=== PATIENT | female | born 1940 | race Caucasian/White ===

== ENCOUNTER → 2024-10-25 | Outpatient (CLI) | payer SELFPAY ==
[2024-10-25 15:24] LABS: Absolute Lymphocyte Count 1.83 X10^3/uL (0.83-4.51); Absolute Neutrophil Count 3.1 X10^3/uL (2.0-7.7); Basophil# 0.06 X10^3/uL; Eosinophil# 0.22 X10^3/uL; Eosinophils% 3.8 % (0-5); Hematocrit 42.2 % (37-47); Hemoglobin 12.8 g/dL (12.0-15.0); Lymphocyte # 1.83 X10^3/ul (0.83-4.51); Lymphocyte % 31.9 % (19-41); Mean Corp Hgb Conc 30.3 g/dL (32-36); Mean Corpuscular Hgb 24.7 pg (27.0-32.0); Mean Corpuscular Volume 81.5 fL (81-99); Mean Platelet Vol. 10.9 fl (6.2-12.0); Monocyte# 0.53 X10^3/uL; Monocyte% 9.2 % (0-10); NRBC Flagged by Analyzer 0 % (0-5); Neutrophil # 3.08 X10^3/uL (2.7-7.7); Neutrophil % 53.9 % (47-70); Platelet Count 263 K/mm3 (150-450); RBC Distribution Width CV 13.5 % (11.6-14.6); RBC Distribution Width SD 39.8 fl (35.1-43.9); Red Blood Count 5.18 M/mm3 (4.2-5.4); White Blood Count 5.7 K/mm3 (4.4-11.0)
[2024-10-25 15:53] LABS: ALB/GLOB Ratio 0.8 RATIO (0.9-2.4); AST(SGOT) 18 U/L (15-37); Alanine Aminotransfer ALT/SGPT 20 U/L (13-56); Albumin, Serum 3.1 g/dL (3.2-5.0); Alkaline Phosphatase 68 U/L (45-117); Anion Gap 3 (5-15); BUN 24 mg/dL (7-18); BUN/Creat Ratio 31.7 RATIO (10-20); Calcium,Total 10.6 mg/dL (8.5-10.1); Chloride 113 mmol/L (98-107); Creatinine, Serum 0.76 mg/dL (0.55-1.02); EST Glomerular Filtration Rate 78 mL/min (>60); Est Glom Filt Rate - Afr Amer 94 mL/min (>60); Globulin 3.7 g/dL (2.2-4.2); Glucose 93 mg/dL (74-106); Magnesium 2.1 mg/dL (1.6-2.6); Protein, Total 6.8 g/dL (6.4-8.2); Sodium Level 145 mmol/L (136-145); Thyroid Stim Hormone (TSH) < 0.005 uIU/mL (0.358-3.740)
== END | disposition home or self-care (01) ==
LOC: MFPLAB 12:01
PROVIDERS: PCP Family Medicine; Referring Provider Family Medicine; Visit Provider Family Medicine
DX: R03.0 Elevated blood-pressure reading, without diagnosis of hypertension (principal); F41.8 Other specified anxiety disorders
CPT/HCPCS: 36415; 80053; 83735; 84443; 85025

== ENCOUNTER → 2024-10-27 | Outpatient (CLI) | payer MEDICARE, SELFPAY ==
[2024-10-27 13:14] LABS: PTHIN 60.6 pg/mL (18.4-80.1)
[2024-10-27 13:41] LABS: T4 Free Direct 1.22 ng/dL (0.76-1.46)
[2024-11-08 13:08] LABS: Anti-Thyroglobulin AB 3.5 IU/mL (0.0-0.9); Thyroglobulin RIA 13 ng/mL (.); Thyroid Peroxidase AB 12 IU/mL (0-34); Thyroid Stim Immunoglob <0.10 IU/L (0.00-0.55)
== END | disposition home or self-care (01) ==
PROVIDERS: PCP Family Medicine; Referring Provider Family Medicine; Visit Provider Family Medicine
DX: E83.52 Hypercalcemia (principal); R79.89 Other specified abnormal findings of blood chemistry
CPT/HCPCS: 36415; 83970; 84432; 84439; 84445; 86376; 86800

== ENCOUNTER → 2024-11-29 | Outpatient (CLI) | payer MEDICARE, SELFPAY | END | disposition home or self-care (01) | LOC: PSN 08:52 | PROVIDERS: PCP Family Medicine; Referring Provider Family Medicine; Visit Provider Family Medicine | DX: R01.1 Cardiac murmur, unspecified (principal); R03.0 Elevated blood-pressure reading, without diagnosis of hypertension; I49.1 Atrial premature depolarization | CPT/HCPCS: 93005 ==

== ENCOUNTER → 2024-12-15 | Outpatient (CLI) | payer MEDICARE, SELFPAY ==
[2024-12-15 10:48] LABS: Absolute Lymphocyte Count 1.65 X10^3/uL (0.83-4.51); Absolute Neutrophil Count 3.9 X10^3/uL (2.0-7.7); Basophil# 0.08 X10^3/uL; Basophil% 1.2 % (0-1); Eosinophil# 0.43 X10^3/uL; Eosinophils% 6.4 % (0-5); Hematocrit 41.4 % (37-47); Hemoglobin 12.8 g/dL (12.0-15.0); Lymphocyte # 1.65 X10^3/ul (0.83-4.51); Lymphocyte % 24.5 % (19-41); Mean Corp Hgb Conc 30.9 g/dL (32-36); Mean Corpuscular Hgb 25.1 pg (27.0-32.0); Mean Corpuscular Volume 81.3 fL (81-99); Mean Platelet Vol. 10.5 fl (6.2-12.0); Monocyte# 0.65 X10^3/uL; Monocyte% 9.7 % (0-10); NRBC Flagged by Analyzer 0 % (0-5); Neutrophil % 57.9 % (47-70); Platelet Count 363 K/mm3 (150-450); RBC Distribution Width CV 13.2 % (11.6-14.6); RBC Distribution Width SD 38.7 fl (35.1-43.9); Red Blood Count 5.09 M/mm3 (4.2-5.4); White Blood Count 6.7 K/mm3 (4.4-11.0)
[2024-12-15 10:52] LABS: Ionized Calcium Order ORDER TUBE
[2024-12-15 11:33] LABS: ALB/GLOB Ratio 1.1 RATIO (0.9-2.4); AST(SGOT) 17 U/L (<=31); Alanine Aminotransfer ALT/SGPT 18 U/L (<=34); Albumin, Serum 3.4 g/dL (3.4-4.8); Alkaline Phosphatase 90 U/L (35-104); Anion Gap 7 (5-15); BUN 18 mg/dL (4-19); BUN/Creat Ratio 26.7 RATIO (10-20); Calcium,Total 10.1 mg/dL (7.6-11.0); Carbon Dioxide 25.5 mmol/L (21.0-32.0); Chloride 110 mmol/L (98-108); Creatinine, Serum 0.67 mg/dL (0.70-1.20); EST Glomerular Filtration Rate 87 (>60); Globulin 3.2 g/dL (2.2-4.2); Glucose 102 mg/dL (70-99); Potassium 4.3 mmol/L (3.3-5.1); Protein, Total 6.6 g/dL (5.9-8.4); Sodium Level 142 mmol/L (133-145); Total Bilirubin 0.52 mg/dL (0.00-1.30)
[2024-12-15 12:52] LABS: Ionized Calcium 1.36 mmol/L (1.09-1.30)
== END | disposition home or self-care (01) ==
LOC: MFPLAB 09:49
PROVIDERS: PCP Family Medicine; Referring Provider Family Medicine; Visit Provider Family Medicine
DX: N20.0 Calculus of kidney (principal); E83.52 Hypercalcemia
CPT/HCPCS: 36415; 80053; 82330; 85025

== ENCOUNTER → 2025-01-03 | Outpatient (CLI) | payer MEDICARE, SELFPAY ==
--- NOTE | 2025-01-03 13:46 | ECHOD_ITS ---
Reason For Study Reason For Study: MURMUR Procedure This was a 2D Doppler, Color Flow transthoracic echocardiogram. Exam performed in department. Left Ventricle Normal LV size. The left ventricular ejection fraction is 60 %. Stage 1 diastolic dysfunction. No regional wall motion abnormalities noted. Right Ventricle Normal RV size. Normal systolic function. Atria Normal left atrium. Normal right atrium. Bubble contrast study negative for right to left interatrial shunt. Mitral Valve Bileaflet diffuse mitral valve thickening. Mild (1+) eccentric mitral valve insufficiency. Tricuspid Valve Normal tricuspid valve. Mild tricuspid valve insufficiency. Pulmonary artery systolic pressure is 32 mmHg. Aortic Valve Trisinus/trileaflet aortic valve. Mild (1+) aortic valve insufficiency. Pulmonic Valve Normal pulmonic valve. Great Vessels Normal aortic root. The pulmonary artery is normal size. Inferior vena cava collapse with respiration. Pericardium/Pleural Trivial pericardial effusion. Medication 22 gauge I.V. with prn adaptor inserted into left arm. Performed a rapid injection of agitated mix of 9 cc saline and 1cc air to assess for atrial septal defect. MMode/2D Measurements & Calculations LVIDd: 4.3 cm IVSd: 1.0 cm Ao root diam: 3.2 cm LVIDs: 2.7 cm LVPWd: 1.1 cm RVDd: 3.4 cm FS: 37.2 % LAV(MOD-bp): 22.0 ml LVAd ap4: 20.7 cm2 SV(MOD-sp4): 33.0 ml LAV(MOD-bp) Indexed: 13.5 ml/m2 LVLd ap4: 6.4 cm SI(MOD-sp4): 20.2 ml/m2 LAV(MOD-sp2): 23.1 ml EDV(MOD-sp4): 53.4 ml LAV(MOD-sp4): 20.3 ml EDV(sp4-el): 56.5 ml LVAs ap4: 11.1 cm2 LVLs ap4: 5.3 cm ESV(MOD-sp4): 20.4 ml ESV(sp4-el): 19.7 ml EF(MOD-sp4): 61.8 % EF(sp4-el): 65.0 % SV(sp4-el): 36.7 ml LA A4 area: 10.4 cm2 LA dimension(2D): 3.2 cm RA A4 area: 10.5 cm2 TAPSE: 2.4 cm Time Measurements MV dec time: 0.22 sec Doppler Measurements & Calculations MV E max oskar: 53.1 cm/sec Lat Peak E' Oskar: 7.0 cm/sec Med Peak E' Oskar: 6.5 cm/sec MV A max oskar: 76.0 cm/sec E/E' lat: 7.5 E/E' med: 8.2 MV E/A: 0.70 Ao V2 max: 121.3 cm/sec AI max oskar: 358.9 cm/sec LV V1 max: 93.4 cm/sec Ao max P.9 mmHg AI max P.5 mmHg LV V1 max P.5 mmHg AI dec slope: 222.0 cm/sec2 AI P1/2t: 473.5 msec PA V2 max: 99.6 cm/sec TR max oskar: 266.7 cm/sec TR max P.5 mmHg ECHO/Echo Complete Interpretation Summary Normal LV size. The left ventricular ejection fraction is 60 %. Bubble contrast study negative for right to left interatrial shunt. Mild (1+) eccentric mitral valve insufficiency. Stage 1 diastolic dysfunction. Ordering Physician: Bridger Palumbo Referring Physician: Bridger Palumbo Performed By: Stefani dEdy RDCS
== END | disposition home or self-care (01) ==
PROVIDERS: PCP Family Medicine; Referring Provider Family Medicine; Visit Provider Family Medicine
DX: R01.1 Cardiac murmur, unspecified (principal)
CPT/HCPCS: 93306; A4216

== ENCOUNTER → 2025-01-17 | Outpatient (CLI) | payer MEDICARE, SELFPAY ==
--- NOTE | 2025-01-17 14:24 | NEURO ---
NCS and/or EMG Patient Report Ordering Doctor: Bridger Palumbo DATE OF SERVICE: 01/17/25 Cherie presents numbness and tingling in both hands, worse on the right side. Electrodiagnostic findings: Right median motor nerve demonstrates prolonged latency with normal amplitude and conduction velocity. Left median motor nerve demonstrates normal distal latency with normal amplitude and conduction velocity. Ulnar motor response is within normal limits bilaterally. Prolonged median sensory latency at the wrist bilaterally with reduced conduction on the right side. Normal median and ulnar F?waves. Needle EMG testing was performed in the upper limbs. All muscles tested showed no evidence of denervation with normal motor unit action potentials. Electrodiagnostic impression: This is an abnormal study. 1. Electrodiagnostic findings suggestive of bilateral median mononeuropathy. This is consistent with a mild to moderate right carpal tunnel syndrome and a mild left carpal tunnel syndrome. Multi Select Codes Neurology Neurology Interp Codes: 30547-71 Musc test done w/n test comp (interp) (2) and 41360-02 Nrv cndj test 11-12 studies (interp)
== END | disposition home or self-care (01) ==
LOC: PSN 12:30
PROVIDERS: PCP Family Medicine; Referring Provider Family Medicine; Visit Provider Family Medicine
DX: G56.03 Carpal tunnel syndrome, bilateral upper limbs (principal)
CPT/HCPCS: 95886; 95912

== ENCOUNTER → 2025-04-05 | Outpatient (CLI) | payer MEDICARE, SELFPAY ==
--- NOTE | 2025-04-05 10:47 | RAD_ITS ---
PROCEDURE: THORACIC SPINE 2 VIEWS 04/05/2025 REASON FOR EXAM: PAIN TECHNIQUE: THORACIC SPINE 2 VIEWS COMPARISON: None. FINDINGS: Moderate compression deformity of an upper thoracic vertebra with mildly exaggerated kyphosis at this level. Mild degenerative changes of the visualized spine. RAD/Thoracic Spine 2 Views IMPRESSION: Upper thoracic compression deformity of undetermined age. Mild spondylosis. Reading Location: [id number]
== END | disposition home or self-care (01) ==
LOC: MTRAD 10:45
PROVIDERS: PCP Family Medicine; Referring Provider Family Medicine; Visit Provider Family Medicine
DX: M54.6 Pain in thoracic spine (principal)
CPT/HCPCS: 72070

== ENCOUNTER → 2025-04-10 | Outpatient (CLI) | payer MEDICARE, SELFPAY ==
--- NOTE | 2025-04-10 15:30 | MRI_ITS ---
PROCEDURE: SPINE THORACIC (ROUTINE), 04/10/2025 REASON FOR EXAM: COMPRESSION FRACTURE SHOWN ON X-RAY TECHNIQUE: Multisequence multiplanar MR of the thoracic spine was performed without IV contrast. COMPARISON: 04/05/2025 FINDINGS: Redemonstrated T6 burst fracture with associated compression deformity with roughly 40% loss of anterior vertebral body height. There is associated minimal retropulsion of roughly 3 mm, as well as marrow edema throughout the vertebral body and edema in the anterior paraspinal soft tissues. Minimal associated focal spinal canal stenosis, with incomplete effacement of CSF. Focal 10.0 cm structure in the posterior aspect of the vertebral body demonstrates T2 hyperintensity and T1 intermediate signal. Marrow edema also present within the RIGHT medial 6th and 7th ribs as well as the RIGHT T7 transverse process, partially imaged and not well evaluated. Otherwise, vertebral body heights are preserved, and otherwise, marrow signal is somewhat heterogeneous however there is no convincing focal suspicious marrow signal abnormality identified.. Mild focal kyphosis centered at T6 otherwise no significant malalignment. Thoracic cord signal grossly within normal limits. No high-grade thoracic spinal canal or foraminal stenosis identified. Multilevel thoracic facet arthropathy. Relatively focal disc height loss anteriorly at C5-C6 and C6-C7, otherwise generalized disc height loss is overall mild/moderate. Mild multilevel disc bulging, most notable at T11-T12 and L1-L2. 2.0 cm RIGHT lobe thyroid nodule versus cyst suspected, not well evaluated. T2 bright presumed LEFT renal cyst, technically incompletely characterized in the absence of IV contrast. Small T2 bright presumed hepatic cyst, also technically incompletely characterized. 2.2 x 1.8 cm retroperitoneal cystic structure adjacent to the CBD and expected location of the pancreatic head as well as the IVC, potentially pancreatic. Mild dilatation of the CBD to roughly 9 mm, not well seen renal sinus cysts versus hydronephrosis on the RIGHT, not well evaluated. Partially imaged focal fluid collection in the posterior paraspinal soft tissues at the level of L1-L2 and extending below the field of view measures at least 3.1 x 1.3 cm. MRI/Spine Thoracic (Routine) IMPRESSION: 1. Redemonstrated acute appearing T6 burst fracture with minimal retropulsion r esulting in minimal focal spinal canal stenosis. Marrow edema also present within the RIGHT medial 6th and 7th ribs as well as t he RIGHT T7 transverse process, partially imaged and not well evaluated, possibly reflecting contusion or fracture in these loca tions. Consider CT as indicated. 2. 10 mm rounded structure within the posterior aspect of the T6 vertebral body is not expected to be posttraumatic. This could reflect a pre-existing hemangioma possibly with superimposed marrow edema relat ed to the fracture however this is not definite in the structure is characterized. Correlate with medical history and any availab le previous outside imaging. If unavailable, consider a follow-up MRI with and without contrast in 3 months to allow for res olution of marrow edema. 3. Findings in the imaged upper abdomen which are incompletely characterized bu t warrant follow-up, including a possible 2.2 cm pancreatic cyst and mild biliary dilatation of uncertain significance, possibly post cholecystectomy effect given reported history of cholecystectomy. There is additionally possible RIGHT hydronephrosi s versus renal sinus cysts. Correlate with any available outside imaging of the abdomen. If unavailable, recommend either CT with contrast or multiphase pancreatic protocol MRI abdomen with and without contrast and with MRCP. 4. Recommend thyroid ultrasound for further evaluation of a 2.0 cm RIGHT lobe t hyroid nodule versus cyst. 5. Focal posterior paraspinal partially imaged fluid collection at the level of L1-L2 extending below field of view measuring at least 3.1 cm. This is nonspecific but could reflect an evolving hematoma or tr aumatic seroma. Correlate with exam. 6. Additional description as above. Reading Location: [id number]
== END | disposition home or self-care (01) ==
LOC: OPMRI 15:09
PROVIDERS: PCP Family Medicine; Referring Provider Family Medicine; Visit Provider Family Medicine
DX: S22.000A Wedge compression fracture of unspecified thoracic vertebra, initial encounter for closed fracture (principal)
CPT/HCPCS: 72146

== ENCOUNTER → 2025-04-18 | Outpatient (CLI) | payer MEDICARE, SELFPAY ==
--- NOTE | 2025-04-18 14:16 | US_ITS ---
PROCEDURE: THYROID 04/18/2025 REASON FOR EXAM: THYROID NODULE NOTED IN MRI TECHNIQUE: THYROID COMPARISON: None FINDINGS: Right thyroid lobe size: 5 cm x 2.1 cm x 2.1 cm Left thyroid lobe size: 4.9 cm 1.6 cm 1.3 cm Isthmus: 0.13 cm Background parenchymal echotexture is homogeneous. Nodules: . Lobe: Right, Location: Midpole, Size: 3.3 cm x 1.9 cm x 1.5 cm, Stability: N/A Composition: Mixed cystic and solid (+1) Echogenicity: Hypoechoic (+2) Margin: Smooth (+0) Shape: Wider than tall (+0) Echogenic Foci: None (+0) TI-RADS: : 3 . Lobe: Left, Location: Midpole, Size: 1.2 cm x 1 cm x 1.1 cm, Stability: N/A Composition: Mixed cystic and solid (+1) Echogenicity: Hypoechoic (+2) Margin: Lobulated (+2) Shape: Echogenic Foci: Peripheral calcification (+2) TI-RADS: 3 7 mm x 6 mm x 3 mm complex nodule in the lower pole of the right lobe of the thyroid. TI-RADS: 3 9 mm x 11 mm x 8 mm complex nodule in the lower pole of the left lobe of the thyroid. US/Thyroid IMPRESSION: Biopsy of the complex nodule in the midportion of the right lobe of the thyroid recommended for further evaluation. RECOMMENDATION: Based on most suspicious nodule. Nodule size = largest diameter Only evaluate nodule if =>5 mm. Growth > 20% in 2 dimensions = worsening. Follow up to 4 nodules. Recommend biopsy for no more than 2 nodules. Reading Location: [facility]
== END | disposition home or self-care (01) ==
LOC: US 14:15
PROVIDERS: PCP Family Medicine; Referring Provider Family Medicine; Visit Provider Family Medicine
DX: E04.1 Nontoxic single thyroid nodule (principal)
CPT/HCPCS: 76536

== ENCOUNTER → 2025-04-26 | Outpatient (CLI) | payer MEDICARE, SELFPAY ==
--- NOTE | 2025-04-25 07:30 | BON_PTH ---
PATIENT: ALIS GENAO LOC: [facility] U#:[id number] AGE/SX: 84/F ROOM: RE04/26/[address]: Dr. Kedar Quezada MD : [id number] BED: DIS: 04/26/2025 SPEC #: [id number] RECD: 04/26/25 16:30 STATUS: YASMINE REWaldo #: [id number] NAHUN: 04/25/25 07:[address]: Kedar Quezada DEPT: SURGICAL PATHOLOGY RECD BY: Clinton Valdez ENTERED: 04/27/25 13:18 SP TYPE: Bone OTHR DR: Dr. Bridger Palumbo MD Tissues: A - Vertebra, NOS Procedures: Decalcification bone/plaque Surgery Specimen Level IV HEADER OPERATION: Kyphoplasty od T6 under fluoroscopy with biopsy of T6 PRE-OP DIAGNOSIS: Wedge compression fracture of unspecified thoracic vertebrae, initial encounter for closed fracture TISSUE SUBMITTED: A- Thoracic T6 MICROSCOPIC DIAGNOSIS A. Bone, thoracic, T6, core biopsy: - Trabecular bone with fibrosis, and scattered lymphocytes and plasma cells - see note. - Focal reactive bone formation suggestive of fracture. - No neoplasia seen. Note: Scattered chronic inflammatory cells including plasma cells raises consideration of osteomyelitis, but is not diagnostic. Recommend correlation with clinical and imaging findings. MICROSCOPIC DESCRIPTION Slides are reviewed. GROSS DESCRIPTION A. Received in formalin labeled with the patient's name and date of . Designated as T6 biopsy is a 1.2 cm length by 0.1 cm diameter light brown to red bone core. Entirely submitted in 1 cassette, following decalcification. PA 04/27/2025 CPT:96244,30235
== END | disposition home or self-care (01) ==
LOC: LABSPEC 16:03
PROVIDERS: PCP Family Medicine; Referring Provider Anesthesiology Pain Medicine; Visit Provider Anesthesiology Pain Medicine
DX: M48.54XA Collapsed vertebra, not elsewhere classified, thoracic region, initial encounter for fracture (principal)
CPT/HCPCS: 88305; 88311

== ENCOUNTER → 2025-06-19 | Outpatient (CLI) | payer MEDICARE, SELFPAY ==
--- NOTE | 2025-06-19 11:03 | BD_ITS ---
PROCEDURE: DEXA BONE DENSITY STUDY 06/19/2025 REASON FOR EXAM: F, age 84 y/o . Postmenopausal. TECHNIQUE: Procedure Code: BDDBD Modality: DX Procedure: DEXA BONE DENSITY STUDY COMPARISON: None FINDINGS: BMD and T-SCORES Lumbar spine: 0.879 g/cm2, T-score -1.5 Levels: L1 through L4 Left femoral neck: 0.538 g/cm2, T-score -2.8 Femoral neck comparison data not recommended for monitoring change. Left total hip: 0.646 g/cm2, T-score -2.4 Right femoral neck: 0.583 g/cm2, T-score -2.4 Femoral neck comparison data not recommended for monitoring change. Right total hip: 0.655 g/cm2, T-score -2.4 The World Health Organization has defined the following categories based on bone density: Normal bone density: T-score equal to or greater than -1.0 Osteopenia: T-score between -1.0 and -2.5 Osteoporosis: T-score equal to or less than -2.5 FRAX (or Comparable) Fracture Risk Assessment: 10 Year Probability of Fracture: Major Osteoporotic Fracture: 28% Hip Fracture: 10% (Note: FRAX is not to be reported in setting of normal range bone density, osteoporosis on DEXA, known history of osteoporosis, prior osteoporotic hip or vertebral fracture, or for any patient undergoing pharmacological treatment for bone loss.) The National Osteoporosis Foundation (NOF) recommends pharmacological treatment for patients with a FRAX 10-year risk of 3% or higher for a hip fracture, or 20% or higher for a major osteoporotic fracture, to prevent osteoporosis and reduce fracture risk. The patient does meet the pharmacological treatment recommendations for prevention of osteoporosis. BD/Dexa Bone Density Study IMPRESSION: OSTEOPOROSIS. Recommend follow-up as clinically warranted. Reading Location: [facility]
== END | disposition home or self-care (01) ==
LOC: OPBD 10:56
PROVIDERS: PCP Family Medicine; Referring Provider Family Medicine; Visit Provider Family Medicine
DX: M81.0 Age-related osteoporosis without current pathological fracture (principal)
CPT/HCPCS: 77080